=== PATIENT | female | born 1990 | race Caucasian/White ===

== ENCOUNTER 2019-10-05 13:08 | Outpatient (CLI) | payer MEDICAID | END 2019-10-05 13:09 | disposition critical access hospital (66) | LOC: EMS 13:08 | PROVIDERS: ATTEND Surgery | DX: R10.30 Lower abdominal pain, unspecified (principal); R30.9 Painful micturition, unspecified | CPT/HCPCS: A0425; A0429; A0999 ==

== ENCOUNTER 2019-10-05 13:23 | Emergency (ER) | payer MEDICAID ==
[2019-10-05 13:45] LABS: GLUCOSE, URINE (UA) NEGATIVE (NEGATIVE); KETONES,URINE (UA) 15 mg/dL (NEGATIVE); LEUKOCYTE ESTERASE, URINE NEGATIVE (NEGATIVE); NITRITE,URINE NEGATIVE (NEGATIVE); OCCULT BLOOD,URINE LARGE (NEGATIVE); PROTEIN,URINE TRACE mg/dL (NEGATIVE); UROBILINOGEN,URINE 1 (NORMAL) E.U./dL (NORMAL)
--- NOTE | 2019-10-05 13:55 | ED Physician Documentation ---
History of Present Illness - Stated complaint Stated Complaint: ABD PX - Chief complaint Chief Complaint: UTI - History obtained from History obtained from: Patient - History of Present Illness Timing: How many weeks ago (2) - Additonal information Additional information: 29-year-old female presents to the emergency department with chief complaint of diffuse lower abdominal pain. Pain is been intermittent for much of the last 2 weeks. She has some associated dysuria but denies fevers or urinary frequency and urgency. Patient reports that about 1 week ago feet she finished a course of antibiotics for suspected urinary tract infection but she does not know the name.She wonders if this is the same problem Patient denies hematuria, CVA tenderness fevers or vomiting. . Review of Systems Constitutional: denies: Fever, Chills Cardiac: denies: Chest pain / pressure, Palpitations Respiratory: denies: Dyspnea, Cough GI: reports: Abdominal Pain. denies: Nausea, Vomiting, Constipation : reports: Dysuria. denies: Frequency, Hesitancy Musculoskeletal: denies: Neck pain, Back pain, Extremity pain Neurologic: denies: Generalized weakness, Focal weakness, Syncope, Seizure, Headache Psychiatric: denies: Depressed PD PAST MEDICAL HISTORY - Past Medical History Past Medical History: Yes Cardiovascular: None Respiratory: None Neuro: None Endocrine/Autoimmune: None GI: None COLLECTION AGENT: None : None HEENT: None Psych: Bipolar disorder Musculoskeletal: None Derm: Other drug resistant infections - Past Surgical History Past Surgical History: No - Present Medications Home Medications: Ambulatory Orders Medication Instructions Recorded Confirmed Ciprofloxacin HCl [Cipro] 500 mg PO BID #20 tablet 10/05/19 - Allergies Allergies/Adverse Reactions: Allergies Allergy/AdvReac Type Severity Reaction Status Date / Time No Known Drug Allergies Allergy Verified 10/05/19 13:31 - Social History Does the pt smoke?: Yes Smoking Status: Current every day smoker Does the pt drink ETOH?: Yes ETOH Use: Liquor Does the pt have substance abuse?: Yes Substance Use and Type: Marijuana - Immunizations Immunizations are current?: Yes - POLST Patient has POLST: No PD ED PE NORMAL - General General: Alert and oriented X 3, No acute distress, Well developed/nourished - Neck Neck: No adenopathy - Cardiac Cardiac: RRR, No murmur - Abdomen Abdomen: Normal bowel sounds (diffuse tenderness lower abdomen without rebund and guarding. 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, No motor deficit Eye Opening: Spontaneous Motor: Obeys Commands Verbal: Oriented GCS Score: 15 - Psych Psych: Normal mood Results - Vitals Vitals: Vital Signs - 24 hr 10/05/19 13:31 Temperature 37 C Heart Rate 106 H Respiratory 18 Rate Blood Pressure 102/69 O2 Saturation 100 Oxygen O2 Source Room air - Labs Labs: Laboratory Tests 10/05/19 10/05/19 10/05/19 13:35 13:35 14:17 WBC 17.3 H RBC 4.14 L Hgb 12.5 Hct 38.2 MCV 92.3 MCH 30.2 MCHC 32.7 RDW 13.0 Plt Count 351 MPV 9.1 Neut # (Auto) 14.4 H Lymph # (Auto) 1.4 L [place] # (Auto) 1.1 H Eos # (Auto) 0.2 Baso # (Auto) 0.1 Absolute Nucleated RBC 0.00 Nucleated RBC % 0.0 Urine Color YELLOW Urine Clarity SL. CLOUDY Urine pH 6.0 Ur Specific [place] >=1.030 H >=1.030 H Urine Protein TRACE Urine Glucose (UA) NEGATIVE Urine Ketones 15 H Urine Occult Blood LARGE H Urine Nitrite NEGATIVE Urine Bilirubin NEGATIVE Urine Urobilinogen 1 (NORMAL) Ur Leukocyte Esterase NEGATIVE Urine RBC 6-10 H Urine WBC 4-5 Ur Squamous Epith Cells MANY Squamous H Urine Crystals 11-25 Ca Oxalate Urine Bacteria Moderate H Urine Mucus Marked Strands Urine Trichomonas PRESENT H Ur Microscopic Review INDICATED Urine Culture Comments NOT INDICATED Urine HCG, Qual NEGATIVE PD MEDICAL DECISION MAKING - ED course Complexity details: reviewed results, re-evaluated patient, d/w patient ED course: 29-year-old female presents to the emergency department chief complaint of 2 weeks and intermittent lower abdominal pain. She may have recently completed a course of antibiotics for suspected urinary tract infection. On exam today her urine is consistent with infection. moderate LE and bacteria in the urine. + leukocytosis. Cultures pending. I have given her an injection of ceftriaxone here in the emergency department for UTI. Will treat as possible pyelo though I do not feel like she has findings consistent with concern for perinephric abscess. No fevers or flank pain or CVA tenderness. - Vies patient that if symptoms not improving, she develops fevers or worsening symptoms she is to return to the emergency department for reevaluation Departure - Departure Disposition: 01 Home, Self Care Clinical Impression: Pyelonephritis Instructions: Pyelonephritis Dc Prescriptions: Ciprofloxacin HCl [Cipro] 500 mg PO BID #20 tablet Comments: Antionette it looks like you have an infection in your urine that may be heading into your kidneys. I want you to fill the prescription for the antibiotics and be given taking as directed. However if the pain does not improve when urinating, you have fevers worsening pain or any vomiting then please return for second evaluation
[2019-10-05 13:57] LABS: BILIRUBIN,URINE NEGATIVE (NEGATIVE); CLARITY,URINE SL. CLOUDY (CLEAR); ICTOTEST,URINE NEGATIVE
[2019-10-05 14:06] LABS: BACTERIA,URINE Moderate /HPF (None Seen); CRYSTALS,URINE 11-25 Ca Oxalate /LPF; MUCUS,URINE Marked Strands; SQUAMOUS EPITHELIAL CELL,UR MANY Squamous (<= Few)
[2019-10-05 14:07] LABS: TRICHOMONAS,URINE PRESENT (None Seen)
[2019-10-05 14:12] LABS: HCG UR QUAL NEGATIVE
[2019-10-05] MEDS ORDERED: LIDOCAINE 1% 2 ML VIAL MC ONE (14:15)
[2019-10-05] MEDS ORDERED: cefTRIAXone 1 GM VIAL IM STA (14:15)
[2019-10-05 14:31] LABS: BASOPHILS # (AUTO) 0.1 10^3/uL (0.0-0.1); BASOPHILS % (AUTO) 0.4 %; EOSINOPHILS # (AUTO) 0.2 10^3/uL (0.0-0.7); EOSINOPHILS % (AUTO) 1.1 %; HGB - HEMOGLOBIN 12.5 g/dL (12.0-16.0); LYMPHOCYTES # (AUTO) 1.4 10^3/uL (1.5-3.5); LYMPHOCYTES % (AUTO) 8.1 %; MEAN CORPUSCULAR HEMOGLOBIN 30.2 pg (27.0-31.0); MEAN CORPUSCULAR HGB CONC 32.7 g/dL (32.0-36.0); MEAN CORPUSCULAR VOLUME 92.3 fL (81.0-99.0); MEAN PLATELET VOLUME 9.1 fL (7.9-10.8); MONOCYTES # (AUTO) 1.1 10^3/uL (0.0-1.0); MONOCYTES % (AUTO) 6.6 %; NEUTROPHILS # (AUTO) 14.4 10^3/uL (1.5-6.6); NEUTROPHILS % (AUTO) 83.2 %; PLT - PLATELET COUNT 351 10^3/uL (130-450); RED BLOOD COUNT 4.14 10^6/uL (4.20-5.40); WHITE BLOOD COUNT 17.3 x10^3/uL (4.8-10.8)
[2019-10-05 14:45] LABS: ALBUMIN 3.6 g/dL (3.2-5.5); ALBUMIN/GLOBULIN RATIO 1.2 (1.0-2.2); BILIRUBIN,TOTAL 0.4 mg/dL (0.2-1.0); CALCIUM 8.5 mg/dL (8.5-10.3); CREATININE 0.7 mg/dL (0.4-1.0); TOTAL PROTEIN 6.6 g/dL (6.7-8.2)
[2019-10-05 14:57] VITALS: BP 112/80
== END 2019-10-05 15:00 | disposition home or self-care (01) ==
LOC: EDBD → ED 13:23
DX: N12 Tubulo-interstitial nephritis, not specified as acute or chronic (principal); F17.200 Nicotine dependence, unspecified, uncomplicated
CPT/HCPCS: 36415; 80053; 81001; 81003; 81025; 83690; 85025; 87086; 96372; 99283; 99284